=== PATIENT | male | born 1940 | race Caucasian/White ===

== ENCOUNTER 2023-07-16 06:29 | Day surgery (SDC) | payer MEDICARE ==
[2023-07-16] VITALS (8 sets, daily range): BP systolic 138–158; BP diastolic 77–102; PULSE 83–100; RESP 14–15; TEMP 98.2; O2SAT 93–97
[~2023-07-16] VITALS: Ht 177.8 cm; Wt 102.2 kg
[2023-07-16] MEDS ORDERED: AZAT50TA18 PO (07:14)
[2023-07-16] MEDS ORDERED: METF-1203 PO (07:14)
[2023-07-16] MEDS ORDERED: PIOG15TA70 PO (07:14)
[2023-07-16] MEDS ORDERED: CARV-50 PO (07:14)
[2023-07-16] MEDS ORDERED: EMPA10TA PO (07:14)
[2023-07-16] MEDS ORDERED: VALS40TA11 PO (07:14)
[2023-07-16] MEDS ORDERED: PYRI60TA PO (07:18)
[2023-07-16] MEDS ORDERED: GLIP10TA21 PO (07:18)
[2023-07-16] MEDS ORDERED: FLO0.4C PO (07:18)
[2023-07-16] MEDS ORDERED: ROSU40TA22 PO (07:18)
[2023-07-16] MEDS ORDERED: FURO20TA4 PO (07:18)
[2023-07-16] MEDS ORDERED: FINA5TAB11 PO (07:18)
[2023-07-16] MEDS ORDERED: GABA300C PO (07:18)
[2023-07-16] MEDS ORDERED: OMEP40CA21 PO (07:22)
[2023-07-16] MEDS ORDERED: SACU1TAB PO (07:22)
[2023-07-16] MEDS ORDERED: TRIA10.8 BOTHNARES (07:22)
[2023-07-16] MEDS ORDERED: ASPI81TA52 PO (07:22)
[2023-07-16] MEDS ORDERED: NPH,100I SUBCUT (07:29)
[2023-07-16] MEDS ORDERED: fentaNYL/PF 50MCG/1 ML 2ML syringe ONE (07:30)
[2023-07-16] MEDS ORDERED: vancomycin 1,000mg inj ONE (07:31)
[2023-07-16] MEDS ORDERED: midazolam 1 mg/ML 2ml injection ONE ×2 (07:31→10:42)
[2023-07-16] MEDS ORDERED: LIDOCAINE 2%/EPI 1:100,000 inj. Multi-dose 20 ML VIAL ONE (07:31)
[2023-07-16 08:20] LABS: BASOPHILS # (AUTO) 0.1 X10'3 (0-0.2); BASOPHILS % (AUTO) 1.3 % (0-1); EOSINOPHILS # (AUTO) 0.2 X10'3 (0-0.9); EOSINOPHILS % (AUTO) 3.6 % (0-6); HEMATOCRIT 41.4 % (42.0-52.0); HEMOGLOBIN 13.5 g/dl (14.0-17.9); LYMPHOCYTES # (AUTO) 0.8 X10'3 (1.1-4.8); LYMPHOCYTES % (AUTO) 11.7 % (21-51); MEAN CORPUSCULAR HEMOGLOBIN 28.1 PG (27.0-31.0); MEAN CORPUSCULAR HGB CONC 32.5 g/dL (33.0-36.5); MEAN CORPUSCULAR VOLUME 86.5 FL (78-98); MEAN PLATELET VOLUME 8.5 FL (7.4-10.4); MONOCYTES # (AUTO) 0.7 X10'3 (0-0.9); MONOCYTES % (AUTO) 10.4 % (2-12); NEUTROPHILS # (AUTO) 4.7 X10'3 (1.8-7.7); PLATELET COUNT 168 X10'3 (140-440); RED BLOOD COUNT 4.78 X10'6 (4.70-6.10); RED CELL DISTRIBUTION WIDTH 16.2 % (11.5-14.5); WHITE BLOOD COUNT 6.5 X10'3 (4.5-11.0)
[2023-07-16 08:39] LABS: ANION GAP 7 (8-16); BLOOD UREA NITROGEN 29 MG/DL (7-18); BUN/CREATININE RATIO 18.1 (10.0-20.0); CALCIUM 9.8 MG/DL (8.5-10.1); CHLORIDE 102 MMOL/L (99-107); GLUCOSE 257 MG/DL (70-104); MAGNESIUM 1.2 MG/DL (1.5-2.4); SODIUM 142 MMOL/L (135-145); TOTAL CARBON DIOXIDE 32.9 MMOL/L (24-32); eCRCL 35 ML/MIN; eGFR 41 ML/MIN
[2023-07-16 08:41] LABS: PROTHROMBIN TIME 10.4 SECONDS (9.0-12.0)
[2023-07-16] MEDS ORDERED: magnesium 2GM in 50ml NS 50 ML IV ONE (09:05)
[2023-07-16] MEDS ORDERED: cefazolin 2gm/D5W 100mL 100 ML IV ONE (10:25)
[2023-07-16] MEDS ORDERED: ceFAZolin 1000mg inj ONE (10:27)
[2023-07-16] MEDS ORDERED: vancomycin/NS 1 GM ADD-VANTAGE 250 ML IV SCH (20:00)
== END 2023-07-16 13:50 | disposition home or self-care (01) ==
LOC: SSTAY O 06:29
PROVIDERS: ATTEND Internal Medicine Cardiovascular Disease
DX: Z45.02 Encounter for adjustment and management of automatic implantable cardiac defibrillator (principal); E78.5 Hyperlipidemia, unspecified; I42.0 Dilated cardiomyopathy; I25.118 Atherosclerotic heart disease of native coronary artery with other forms of angina pectoris; I35.0 Nonrheumatic aortic (valve) stenosis; I44.7 Left bundle-branch block, unspecified; I72.3 Aneurysm of iliac artery; I71.40 Abdominal aortic aneurysm, without rupture, unspecified; E11.9 Type 2 diabetes mellitus without complications; J44.9 Chronic obstructive pulmonary disease, unspecified; K21.9 Gastro-esophageal reflux disease without esophagitis; N40.0 Benign prostatic hyperplasia without lower urinary tract symptoms; G70.00 Myasthenia gravis without (acute) exacerbation; I11.0 Hypertensive heart disease with heart failure; I50.22 Chronic systolic (congestive) heart failure; Z95.2 Presence of prosthetic heart valve; Z79.899 Other long term (current) drug therapy; Z79.4 Long term (current) use of insulin; Z90.49 Acquired absence of other specified parts of digestive tract; Z98.890 Other specified postprocedural states; Z87.891 Personal history of nicotine dependence; Z72.89 Other problems related to lifestyle; Z88.8 Allergy status to other drugs, medicaments and biological substances; Z91.041 Radiographic dye allergy status; Z80.0 Family history of malignant neoplasm of digestive organs; Z82.49 Family history of ischemic heart disease and other diseases of the circulatory system
CPT/HCPCS: 33264; 36415; 80048; 83735; 85025; 85610; 93005; 99152; 99153; C1882; J0690; J2250; J3010; J3370; J3475; J7030

== ENCOUNTER 2024-05-09 07:57 | Day surgery (SDC) | payer MEDICARE ==
[2024-05-09] VITALS (9 sets, daily range): BP systolic 144–167; BP diastolic 77–96; PULSE 80–99; RESP 11–20; TEMP 98.3; O2SAT 93–96
[~2024-05-09] VITALS: Ht 177.8 cm; Wt 98.7 kg
[~2024-05-09 07:57] MED LIST: ASPI81TA52 PO; AZAT50TA18 PO; CARV-50 PO; EMPA10TA PO; FINA5TAB11 PO; FLO0.4C PO; FURO20TA4 PO; GABA300C PO; GLIP10TA21 PO; METF-1203 PO; NPH,100I SUBCUT; OMEP40CA21 PO; PIOG15TA70 PO; PYRI60TA PO; ROSU40TA89 PO; SACU1TAB PO; TRIA10.8 BOTHNARES; VALS40TA11 PO
[2024-05-09] MEDS ORDERED: GLIP10TA21 PO (08:54)
[2024-05-09] MEDS ORDERED: OMEP20TA23 PO (08:54)
[2024-05-09 09:21] LABS: INR 1.1 INR
[2024-05-09 09:24] LABS: ALBUMIN 3.5 G/DL (3.4-5.0); ANION GAP 5 (8-16); BLOOD UREA NITROGEN 25 MG/DL (7-18); BUN/CREATININE RATIO 19.2 (10.0-20.0); CALCIUM 8.5 MG/DL (8.5-10.1); CHLORIDE 104 MMOL/L (99-107); GLUCOSE 228 MG/DL (70-104); MAGNESIUM 1.4 MG/DL (1.5-2.4); POTASSIUM 4.3 MMOL/L (3.5-5.1); SODIUM 138 MMOL/L (135-145); TOTAL CARBON DIOXIDE 29.4 MMOL/L (24-32); eCRCL 43 ML/MIN; eGFR 52 ML/MIN
[2024-05-09 09:32] LABS: EOSINOPHILS # (AUTO) 0.1 X10'3 (0-0.9); EOSINOPHILS % (AUTO) 2.8 % (0-6); HEMOGLOBIN 13.8 g/dl (14.0-17.9); LYMPHOCYTES # (AUTO) 0.5 X10'3 (1.1-4.8); LYMPHOCYTES % (AUTO) 11.5 % (21-51); MEAN CORPUSCULAR HEMOGLOBIN 31.1 PG (27.0-31.0); MEAN CORPUSCULAR HGB CONC 32.9 g/dL (33.0-36.5); MEAN CORPUSCULAR VOLUME 94.4 FL (78-98); MEAN PLATELET VOLUME 8.4 FL (7.4-10.4); MONOCYTES # (AUTO) 0.5 X10'3 (0-0.9); MONOCYTES % (AUTO) 10.6 % (2-12); NEUTROPHILS # (AUTO) 3.5 X10'3 (1.8-7.7); NEUTROPHILS % (AUTO) 74.1 % (42-75); PLATELET COUNT 177 X10'3 (140-440); RED BLOOD COUNT 4.45 X10'6 (4.70-6.10); RED CELL DISTRIBUTION WIDTH 18.6 % (11.5-14.5); WHITE BLOOD COUNT 4.7 X10'3 (4.5-11.0)
[2024-05-09] MEDS: sodium bicarbonate 1meq/ml syr 150 ML in dextrose 5%-water 1,000 ML IV ONE (09:37)
[2024-05-09] MEDS: normal saline 1,000 ML IV SCH (09:38)
[2024-05-09 10:14] LABS: ANISOCYTOSIS 2+; PLATELET ESTIMATE NORMAL; POIKILOCYTOSIS FEW; POLYCHROMASIA FEW
[2024-05-09] MEDS: diphenhydrAMINE 25mg capsule PO PRN (10:45)
[2024-05-09] MEDS ORDERED: fentaNYL/PF 50MCG/1 ML 2ML syringe ONE (12:10)
[2024-05-09] MEDS ORDERED: iohexol 350MG/ML 100ml bottle IV ONE (12:10)
[2024-05-09] MEDS ORDERED: verapamil 2.5 mg/ml inj IV ONE (12:10)
[2024-05-09] MEDS ORDERED: heparin 1,000unit/ml 10ml vial 10 ML ONE (12:10)
[2024-05-09] MEDS ORDERED: LIDOcaine 1% (10mg/ml) 2ml vial ONE (12:10)
[2024-05-09] MEDS ORDERED: midazolam 1 mg/ML 2ml injection ONE (12:10)
[2024-05-09] MEDS ORDERED: iohexol 350 MG/ML 50ML vial IV ONE ×2 (12:10→14:14)
[2024-05-09] MEDS ORDERED: nitroGLYCERIN 500mcg/5mL D5W 5 ML IV ONE (12:11)
[2024-05-09] MEDS ORDERED: ondansetron/PF 4mg/2ml inj IV PRN (15:15)
[2024-05-09] MEDS ORDERED: proCHLORperazine 10 MG/2 ml inj IV PRN (15:15)
[2024-05-09] MEDS ORDERED: HYDROcodone/acetaminophen 10/325mg tab PO PRN (15:15)
[2024-05-09] MEDS ORDERED: HYDROcodone/acetaminophen 5mg/325mg tablet PO PRN (15:15)
== END 2024-05-09 17:05 | disposition home or self-care (01) ==
LOC: SSTAY O 07:57
PROVIDERS: ATTEND Internal Medicine Cardiovascular Disease
DX: R07.89 Other chest pain (principal); I25.118 Atherosclerotic heart disease of native coronary artery with other forms of angina pectoris; I10 Essential (primary) hypertension; E11.51 Type 2 diabetes mellitus with diabetic peripheral angiopathy without gangrene; J44.89 Other specified chronic obstructive pulmonary disease; K21.9 Gastro-esophageal reflux disease without esophagitis; I35.0 Nonrheumatic aortic (valve) stenosis; I42.0 Dilated cardiomyopathy; Z95.4 Presence of other heart-valve replacement; Z79.82 Long term (current) use of aspirin; Z79.84 Long term (current) use of oral hypoglycemic drugs; Z79.899 Other long term (current) drug therapy; Z95.810 Presence of automatic (implantable) cardiac defibrillator
CPT/HCPCS: 36415; 80048; 82948; 83735; 85025; 85610; 93005; 93454; 99152; 99153; A6258; A6402; C1769; C1894; J1644; J2003; J2250; J3010; J3490; J7030; J7070; Q0163; Q9967; Z7610; 85008